=== PATIENT | female | born 1965 | race African-American/Black ===

== ENCOUNTER 2016-12-06 14:17 | Emergency (ER) | payer SELFPAY ==
[~2016-12-06] VITALS: Ht 142.2 cm; Wt 45.0 kg
[2016-12-06 17:33] VITALS: BP 122/76
== END 2016-12-06 23:00 | disposition left against medical advice (07) ==
LOC: ER 23:00
DX: R60.0 Localized edema (principal)
CPT/HCPCS: 99281; Z7610

== ENCOUNTER 2016-12-07 09:01 | Emergency (ER) | payer OTHER ==
[~2016-12-07] VITALS: Ht 124.5 cm; Wt 47.0 kg
[2016-12-07 09:11] VITALS: BP 139/73
== END 2016-12-07 11:13 | disposition home or self-care (01) ==
LOC: ER 09:27
DX: R60.0 Localized edema (principal); Z88.2 Allergy status to sulfonamides
CPT/HCPCS: 93971; 99284